=== PATIENT | male | born 1985 | race Caucasian/White ===

== ENCOUNTER 2023-02-27 09:10 | Observation (INO) | payer BC, OTHER ==
[2023-02-27] MEDS ORDERED: SODIUM CHLORIDE 0.9% 1,000 ML IV STA (11:21)
[2023-02-27] MEDS ORDERED: KETOROLAC 15 MG/ML 1 ML VIAL IVP STA (11:21)
[2023-02-27] MEDS ORDERED: METOCLOPRAMIDE 5 MG/ML 2 ML VIAL IVP STA (11:21)
--- NOTE | 2023-02-27 11:42 | ED ---
Abdominal Pain HPI - General Chief Complaint: Abdominal Pain Stated Complaint: abd pain Time Seen by Provider: 02/27/23 11:14 Source: patient Mode of arrival: ambulatory Limitations: no limitations - History of Present Illness Initial Comments: Patient is a 38-year-old male presenting with chief complaint of abdominal pain. Patient has had right-sided abdominal pain ongoing for the last 2 days. Admits to nausea and vomiting. Patient was initially seen at urgent care and prescribed Zofran and Bentyl. Yesterday he was seen at [facility], states that he had blood work performed and Covid test which was negative, no imaging performed. He states he was given Zofran and Toradol and discharged home. He states that today the pain is worsening. He admits to persistent nausea, has not vomited today. No fevers or chills. No chest pain or difficulty breathing. No diarrhea or constipation. No rectal bleeding. No dysuria or hematuria. No flank pain. - Related Data Home Medications Medication Instructions Recorded Confirmed Aspirin EC [Ecotrin Low Dose] 81 mg PO DAILY 02/27/23 02/27/23 Cholecalciferol [Vitamin D3 (25 25 mcg PO DAILY 02/27/23 02/27/23 Mcg = 1000 Iu)] Dicyclomine [Bentyl] 10 mg PO TID PRN 02/27/23 02/27/23 Evolocumab [Repatha Sureclick] 140 mg SQ Q14D 02/27/23 02/27/23 Garlic 1,000 mg PO DAILY 02/27/23 02/27/23 Magnesium 250 mg PO DAILY 02/27/23 02/27/23 Ondansetron Odt [Zofran Odt] 8 mg PO BID PRN 02/27/23 02/27/23 Zinc Gluconate [Zinc] 50 mg PO DAILY 02/27/23 02/27/23 Allergies Allergy/AdvReac Type Severity Reaction Status Date / Time No Known Allergies Allergy Verified 02/27/23 14:19 Review of Systems ROS Statement: Those systems with pertinent positive or pertinent negative responses have been documented in the HPI. ROS Other: All systems not noted in ROS Statement are negative. Past Medical History Past Medical History: Hyperlipidemia History of Any Multi-Drug Resistant Organisms: None Reported Past Surgical History: No Surgical Hx Reported Past Psychological History: No Psychological Hx Reported Smoking Status: Never smoker Past Alcohol Use History: None Reported Past Drug Use History: None Reported General Exam Limitations: no limitations General appearance: alert, in no apparent distress Head exam: Present: atraumatic, normocephalic, normal inspection Eye exam: Present: normal appearance, EOMI. Absent: scleral icterus, periorbital swelling Neck exam: Present: normal inspection, full ROM Respiratory exam: Present: normal lung sounds bilaterally. Absent: respiratory distress, wheezes, rales, rhonchi, stridor Cardiovascular Exam: Present: regular rate, normal rhythm, normal heart sounds. Absent: systolic murmur, diastolic murmur, rubs, gallop, clicks GI/Abdominal exam: Present: soft, tenderness. Absent: distended, guarding, rebound, rigid Neurological exam: Present: alert, oriented X3, CN II-XII intact Psychiatric exam: Present: normal affect, normal mood Skin exam: Present: warm, dry, intact, normal color. Absent: rash Course Vital Signs 02/27/23 02/27/23 09:27 11:57 Temperature 98.9 F Pulse Rate 72 52 L Respiratory 18 18 Rate Blood Pressure 148/90 143/87 O2 Sat by Pulse 97 98 Oximetry Medical Decision Making - Medical Decision Making Was pt. sent in by a medical professional or institution (, PA, [facility] [employer], urgent care, hospital, or halfway...) When possible be specific @ -No Did you speak to anyone other than the patient for history (EMS, parent, family, police, friend...)? What history was obtained from this source @ -No Did you review nursing and triage notes (agree or disagree)? Why? @ -I reviewed and agree with nursing and triage notes Were old charts reviewed (outside hosp., previous admission, EMS record, old EKG, old radiological studies, urgent care reports/EKG's, halfway records)? Report findings @ -No old charts were reviewed Differential Diagnosis (chest pain, altered mental status, abdominal pain women, abdominal pain men, vaginal bleeding, weakness, fever, dyspnea, syncope, headache, dizziness, GI bleed, back pain, seizure, CVA, palpatations, mental health, musculoskeletal)? @ -MDM Differential Abdominal Pain Men: Appendicitis, cholecystitis, diverticulosis, ischemic bowel, pancreatitis, hepatitis, UTI, gastroenteritis, AAA, incarcerated hernia, bowel obstruction, constipation, inflammatory bowel, hepatitis, peptic ulcer disease, splenic infarction, perforated viscus, testicular torsion... This is not meant to be an all-inclusive list EKG interpreted by me (3pts min.). @ -As above X-rays interpreted by me (1pt min.). @ -None done CT interpreted by me (1pt min.). @ -CT shows dilated retrocecal appendix with surrounding fluid compatible with acute appendicitis U/S interpreted by me (1pt. min.). @ -None done What testing was considered but not performed or refused? (CT, X-rays, U/S, labs)? Why? @ -None What meds were considered but not given or refused? Why? @ -None Did you discuss the management of the patient with other professionals (professionals i.e. , PA, [employer], lab, RT, psych nurse, administrator social welfare, education professional, teacher, toxics program officer, mental health case manager)? Give summary @ -Spoke with Dr. Davis who accepted admission and advised nothing by mouth, hydration, pain meds, antiemetics, and antibiotics. Was smoking cessation discussed for >3mins.? @ -No Was critical care preformed (if so, how long)? @ -No Were there social determinants of health that impacted care today? How? (Homelessness, low income, unemployed, alcoholism, drug addiction, transportation, low edu. Level, literacy, decrease access to med. care, long-term, rehab)? @ -No Was there de-escalation of care discussed even if they declined (Discuss DNR or withdrawal of care, Hospice)? DNR status @ -No What co-morbidities impacted this encounter? (DM, HTN, Smoking, COPD, CAD, Cancer, CVA, ARF, Chemo, Hep., AIDS, mental health diagnosis, sleep apnea, morbid obesity)? @ -None Was patient admitted / discharged? Hospital course, mention meds given and route, prescriptions, significant lab abnormalities, going to OR and other per tinent info. @ -Admitted. Patient is a 38-year-old male presenting with chief complaint of right lower quadrant pain as well as nausea and vomiting ongoing for the last 3 days. On physical examination there is right lower quadrant tenderness. WBC 17.5. CT shows evidence of appendicitis. I spoke with Dr. Davis general surgeon on-call who accepted admission. Blood cultures are drawn and patient was started on Zosyn. He is placed nothing by mouth and when necessary pain meds and antibiotics are ordered. I explained these findings to the patient, he conveyed verbal understanding and is in agreement with the plan. I discussed this case with my attending Dr. Gonzalez. Undiagnosed new problem with uncertain prognosis? @ -No Drug Therapy requiring intensive monitoring for toxicity (Heparin, Nitro, Insulin, Cardizem)? @ -No Were any procedures done? @ -No Diagnosis/symptom? @ -Appendicitis Acute, or Chronic, or Acute on Chronic? @ -Acute Uncomplicated (without systemic symptoms) or Complicated (systemic symptoms)? @ -complicated Side effects of treatment? @ -No Exacerbation, Progression, or Severe Exacerbation? @ -No Poses a threat to life or bodily function? How? (Chest pain, [place], [place], pneumonia, PE, COPD, DKA, ARF, appy, cholecystitis, CVA, Diverticulitis, Homicidal, Suicidal, threat to staff... and all critical care pts) @ -Yes, if not addressed may lead to sepsis, hypoperfusion, and , - Lab Data Result diagrams: 02/27/23 11:35 02/27/23 11:35 Lab Results 02/27/23 02/27/23 02/27/23 Range/Units 11:35 11:35 11:35 WBC 17.5 H (3.8-10.6) k/uL RBC 5.09 (4.30-5.90) m/uL Hgb 15.3 (13.0-17.5) gm/dL Hct 45.1 (39.0-53.0) % MCV 88.6 (80.0-100.0) fL MCH 29.9 (25.0-35.0) pg MCHC 33.8 (31.0-37.0) g/dL RDW 13.6 (11.5-15.5) % Plt Count 233 (150-450) k/uL MPV 8.1 Neutrophils % 86 % Lymphocytes % 7 % Monocytes % 6 % Eosinophils % 0 % Basophils % 0 % Neutrophils # 14.9 H (1.3-7.7) k/uL Lymphocytes # 1.2 (1.0-4.8) k/uL Monocytes # 1.1 H (0-1.0) k/uL Eosinophils # 0.0 (0-0.7) k/uL Basophils # 0.0 (0-0.2) k/uL Sodium 138 (137-145) mmol/L Potassium 3.8 (3.5-5.1) mmol/L Chloride 100 (98-107) mmol/L Carbon Dioxide 27 (22-30) mmol/L Anion Gap 11 mmol/L BUN 9 (9-20) mg/dL Creatinine 0.71 (0.66-1.25) mg/dL Est GFR (CKD-EPI)AfAm >90 (>60 ml/min/1.73 sqM) Est GFR (CKD-EPI)NonAf >90 (>60 ml/min/1.73 sqM) Glucose 116 H (74-99) mg/dL Calcium 9.4 (8.4-10.2) mg/dL Total Bilirubin 1.4 H (0.2-1.3) mg/dL AST 30 (17-59) U/L ALT 46 (4-49) U/L Alkaline Phosphatase 61 (38-126) U/L Total Protein 7.5 (6.3-8.2) g/dL Albumin 4.6 (3.5-5.0) g/dL Amylase 86 (30-110) U/L Lipase 127 (23-300) U/L Urine Color Yellow Urine Appearance Clear (Clear) Urine pH 7.0 (5.0-8.0) Ur Specific [place] >1.050 H (1.001-1.035) Urine Protein Trace H (Negative) Urine Glucose (UA) Negative (Negative) Urine Ketones Negative (Negative) Urine Blood Negative (Negative) Urine Nitrite Negative (Negative) Urine Bilirubin Negative (Negative) Urine Urobilinogen <2.0 (<2.0) mg/dL Ur Leukocyte Esterase Negative (Negative) Disposition Clinical Impression: Acute appendicitis Disposition: ADMITTED IP TO THIS [facility] Condition: Fair Time of Disposition: 13:41
[2023-02-27 12:16] LABS: ALT 46 U/L (4-49); AST 30 U/L (17-59); African American GFR (CKD) >90 (>60 ml/min/1.73 sqM); Albumin 4.6 g/dL (3.5-5.0); Alkaline Phosphatase 61 U/L (38-126); Amylase 86 U/L (30-110); Anion Gap 11 mmol/L; Blood Urea Nitrogen 9 mg/dL (9-20); Calcium 9.4 mg/dL (8.4-10.2); Carbon Dioxide 27 mmol/L (22-30); Chloride 100 mmol/L (98-107); Glucose 116 mg/dL (74-99); Lipase 127 U/L (23-300); Non-African American GFR(CKD) >90 (>60 ml/min/1.73 sqM); Potassium 3.8 mmol/L (3.5-5.1); Sodium 138 mmol/L (137-145); Total Bilirubin 1.4 mg/dL (0.2-1.3); Total Protein 7.5 g/dL (6.3-8.2)
[2023-02-27 12:54] LABS: Basophils % (A) 0 %; Eosinophils % (A) 0 %; HCT 45.1 % (39.0-53.0); HGB 15.3 gm/dL (13.0-17.5); Lymphocytes # (A) 1.2 k/uL (1.0-4.8); Lymphocytes % (A) 7 %; MCH 29.9 pg (25.0-35.0); MCHC 33.8 g/dL (31.0-37.0); MCV 88.6 fL (80.0-100.0); Mean Platelet Volume 8.1; Monocytes # (A) 1.1 k/uL (0-1.0); Monocytes % (A) 6 %; Neutrophils # (A) 14.9 k/uL (1.3-7.7); Neutrophils % (A) 86 %; Platelet Count 233 k/uL (150-450); RBC 5.09 m/uL (4.30-5.90); RDW 13.6 % (11.5-15.5); WBC 17.5 k/uL (3.8-10.6)
--- NOTE | 2023-02-27 13:16 | CT ---
EXAMINATION TYPE: CT abdomen pelvis w con DATE OF EXAM: 02/27/2023 COMPARISON: INDICATION: Right sided/umbilical pain starting yesterday. DLP: 1066.4 mGycm, Automated exposure control for dose reduction was used. CONTRAST: 100ml mL of Isovue 300. Study performed without Oral Contrast TECHNIQUE: Axial images were obtained from above the diaphragm to the pubic rami in the axial plane a t 5 mm thick sections. Reconstructed images are reviewed on the computer in the coronal plane. FINDINGS: Limited CT sections are obtained the lung bases. The lung bases are clear. CT ABDOMEN: Liver: Normal Spleen: Normal Pancreas: Normal Adrenal glands: The adrenal glands are normal. Gallbladder: Normal Kidneys: No masses are evident. No hydronephrosis is present. No cysts are present. Delayed images were obtained through the kidneys, which remain unremarkable. Aorta: Normal Inferior vena cava: Normal. CT PELVIS: Small amount of free fluid within the lower pelvis. Loops of bowel within the abdomen and pelvis are normal. This study is without oral contrast limi ting bowel evaluation. Appendix: The appendix is dilated measuring 1.6 cm. Free fluid surrounds the appendix. No definite ab scess is identified. Findings are compatible with acute appendicitis. Urinary bladder: Normal. Genitourinary structures: Prostate appears unremarkable. Some calcifications present. Osseous structures: No suspicious lytic or sclerotic lesions. IMPRESSIONS: 1. Dilated retrocecal appendix with surrounding fluid compatible with acute appendicitis
[2023-02-27] MEDS ORDERED: PIPERACILLIN-TAZOBACTAM 3.375 GM in SODIUM CHLORIDE 0.9% 100 ML IVPB STA (13:33)
[2023-02-27] MEDS ORDERED: NALOXONE 0.4 MG/ML 1 ML VIAL IV PRN (13:38)
[2023-02-27] MEDS ORDERED: MORPHINE SULFATE 4 MG/ML SYRINGE IV PRN (13:38)
[2023-02-27] MEDS ORDERED: ONDANSETRON 4 MG/2 ML VIAL IVP PRN (13:38)
[2023-02-27] MEDS ORDERED: SODIUM CHLORIDE 0.9% 1,000 ML IV ONE (13:40)
[2023-02-27] MEDS: SODIUM CHLORIDE 0.9% 1,000 ML IV SCH (14:01)
[2023-02-27 14:34] LABS: Appearance,Urine Clear (Clear); Bilirubin,Urine Negative (Negative); Blood,Urine Negative (Negative); Color,Urine Yellow; Glucose,Urine (UA) Negative (Negative); Ketones,Urine Negative (Negative); Leukocyte Esterase,Urine Negative (Negative); Nitrite,Urine Negative (Negative); Protein,Urine Trace (Negative); Urobilinogen,Urine <2.0 mg/dL (<2.0)
[2023-02-27 14:35] LABS: Specific Gravity,Urine >1.050 (1.001-1.035)
[2023-02-27] MEDS: ACETAMINOPHEN IV (For NPO) 1,000 MG in EMPTY BAG 1 BAG IVPB SCH (21:18)
[2023-02-27] MEDS: KETOROLAC 15 MG/ML 1 ML VIAL IVP PRN (22:21)
[2023-02-27] MEDS: PIPERACILLIN-TAZOBACTAM 3.375 GM in SODIUM CHLORIDE 0.9% 100 ML IVPB SCH (22:22)
[2023-02-28] MEDS: SODIUM CHLORIDE 0.9% 1,000 ML IV SCH ×2 (01:54→12:17)
[2023-02-28] MEDS: ACETAMINOPHEN IV (For NPO) 1,000 MG in EMPTY BAG 1 BAG IVPB SCH ×3 (02:56→15:19)
[2023-02-28] MEDS: PIPERACILLIN-TAZOBACTAM 3.375 GM in SODIUM CHLORIDE 0.9% 100 ML IVPB SCH ×3 (06:48→21:10)
[2023-02-28] MEDS ORDERED: IV FLUID CONTINUATION 1,000 ML IV ONE (09:20)
[2023-02-28 09:29] LABS: African American GFR (CKD) 126.9 (60.0-200.0); Anion Gap 10.9 mmol/L (10.00-18.00); BUN/Creat Ratio 12.44 Ratio (12.00-20.00); Blood Urea Nitrogen 11.2 mg/dL (9.0-27.0); Calcium 8.9 mg/dL (8.7-10.3); Carbon Dioxide 24.1 mmol/L (20.0-27.5); Non-African American GFR(CKD) 109.5 (60.0-200.0); Potassium 3.7 mmol/L (3.5-5.5)
[2023-02-28] MEDS ORDERED: HEPARIN SODIUM,PORCINE/PF 5,000 UNIT/0.5 ML SYRINGE SQ ONE (09:36)
[2023-02-28] MEDS ORDERED: ONDANSETRON 4 MG/2 ML VIAL IVP ONE (09:40)
[2023-02-28] MEDS ORDERED: DEXAMETHASONE SOD PHOSPHATE 4 MG/ML 1 ML VIAL IVP ONE (09:41)
[2023-02-28] MEDS ORDERED: LIDOCAINE 2% INJ 20 MG/ML (2 ML VIAL) ONE (09:42)
[2023-02-28] MEDS ORDERED: HYDROmorphone (PF) 1 MG/ML ONE (09:42)
[2023-02-28] MEDS ORDERED: PROPOFOL 10 MG/ML 20 ML VIAL IV ONE (09:42)
[2023-02-28] MEDS ORDERED: ROCURONIUM 10 MG/ML (5 ML VIAL) IV ONE (09:42)
[2023-02-28] MEDS ORDERED: KETOROLAC 15 MG/ML 1 ML VIAL ONE (09:42)
[2023-02-28] MEDS ORDERED: MIDAZOLAM 2 MG/2 ML VIAL ONE (09:42)
[2023-02-28] MEDS ORDERED: GLYCOPYRROLATE 0.2 MG/ML 2 ML VIAL ONE (09:42)
[2023-02-28] MEDS ORDERED: SUCCINYLCHOLINE CHLORIDE 200 MG/10 ML VIAL IV ONE (09:42)
[2023-02-28] MEDS ORDERED: HEPARIN SODIUM,PORCINE 5,000 UNIT/ML 1 ML VIAL SQ ONE (09:42)
[2023-02-28] MEDS ORDERED: fentaNYL (PF) 50 MCG/ML 2 ML AMP ONE (09:42)
[2023-02-28] MEDS ORDERED: NEOSTIGMINE 1 MG/ML 10 ML VIAL ONE (09:42)
--- NOTE | 2023-02-28 09:43 | P.GSHP ---
History of Present Illness H&P Date: 02/28/23 Chief Complaint: Right lower quadrant pain This a 38 she'll male presents today for right lower quadrant pain. Patient's had pain for present 3 days. He's had previous attacks of right lower quadrant pain which subsided spontaneously. Patient with computed tomography scan shows evidence of a dilated inflamed appendix Past Medical History Past Medical History: Hyperlipidemia History of Any Multi-Drug Resistant Organisms: None Reported Past Surgical History: No Surgical Hx Reported Additional Past Surgical History / Comment(s): colonoscopy Past Psychological History: No Psychological Hx Reported Smoking Status: Never smoker Past Alcohol Use History: None Reported Past Drug Use History: None Reported Medications and Allergies Home Medications Medication Instructions Recorded Confirmed Type Aspirin EC [Ecotrin Low Dose] 81 mg PO DAILY 02/27/23 02/27/23 History Cholecalciferol [Vitamin D3 (25 25 mcg PO DAILY 02/27/23 02/27/23 History Mcg = 1000 Iu)] Dicyclomine [Bentyl] 10 mg PO TID PRN 02/27/23 02/27/23 History Evolocumab [Repatha Sureclick] 140 mg SQ Q14D 02/27/23 02/27/23 History Garlic 1,000 mg PO DAILY 02/27/23 02/27/23 History Magnesium 250 mg PO DAILY 02/27/23 02/27/23 History Ondansetron Odt [Zofran Odt] 8 mg PO BID PRN 02/27/23 02/27/23 History Zinc Gluconate [Zinc] 50 mg PO DAILY 02/27/23 02/27/23 History Allergies Allergy/AdvReac Type Severity Reaction Status Date / Time No Known Allergies Allergy Verified 02/28/23 09:21 Surgical - Exam Vital Signs Temp Pulse Resp BP Pulse Ox 98.9 F 72 18 148/90 97 02/27/23 09:27 02/27/23 09:27 02/27/23 09:27 02/27/23 09:27 02/27/23 09:27 - General well developed, well nourished, no distress - Eyes PERRL - ENT normal pinna - Neck no masses - Respiratory normal expansion - Cardiovascular Rhythm: regular - Abdomen Marked right lower quadrant tenderness Abdomen: soft Results - Labs 02/27/23 11:35 02/28/23 05:26 Abnormal Lab Results - Last 24 Hours (Table) 02/27/23 02/27/23 02/27/23 Range/Units 11:35 11:35 11:35 WBC 17.5 H (3.8-10.6) k/uL Neutrophils # 14.9 H (1.3-7.7) k/uL Monocytes # 1.1 H (0-1.0) k/uL Glucose 116 H (74-99) mg/dL Total Bilirubin 1.4 H (0.2-1.3) mg/dL Ur Specific [place] >1.050 H (1.001-1.035) Urine Protein Trace H (Negative) Diabetes panel 02/27/23 02/28/23 Range/Units 11:35 05:26 Sodium 138 141 (137-145) mmol/L Potassium 3.8 3.7 (3.5-5.1) mmol/L Chloride 100 106 (98-107) mmol/L Carbon Dioxide 27 24.1 (22-30) mmol/L BUN 9 11.2 (9-20) mg/dL Creatinine 0.71 0.9 (0.66-1.25) mg/dL Glucose 116 H 90 (74-99) mg/dL Calcium 9.4 8.9 (8.4-10.2) mg/dL AST 30 (17-59) U/L ALT 46 (4-49) U/L Alkaline Phosphatase 61 (38-126) U/L Total Protein 7.5 (6.3-8.2) g/dL Albumin 4.6 (3.5-5.0) g/dL Calcium panel 02/27/23 02/28/23 Range/Units 11:35 05:26 Calcium 9.4 8.9 (8.4-10.2) mg/dL Albumin 4.6 (3.5-5.0) g/dL Pituitary panel 02/27/23 02/28/23 Range/Units 11:35 05:26 Sodium 138 141 (137-145) mmol/L Potassium 3.8 3.7 (3.5-5.1) mmol/L Chloride 100 106 (98-107) mmol/L Carbon Dioxide 27 24.1 (22-30) mmol/L BUN 9 11.2 (9-20) mg/dL Creatinine 0.71 0.9 (0.66-1.25) mg/dL Glucose 116 H 90 (74-99) mg/dL Calcium 9.4 8.9 (8.4-10.2) mg/dL Adrenal panel 02/27/23 02/28/23 Range/Units 11:35 05:26 Sodium 138 141 (137-145) mmol/L Potassium 3.8 3.7 (3.5-5.1) mmol/L Chloride 100 106 (98-107) mmol/L Carbon Dioxide 27 24.1 (22-30) mmol/L BUN 9 11.2 (9-20) mg/dL Creatinine 0.71 0.9 (0.66-1.25) mg/dL Glucose 116 H 90 (74-99) mg/dL Calcium 9.4 8.9 (8.4-10.2) mg/dL Total Bilirubin 1.4 H (0.2-1.3) mg/dL AST 30 (17-59) U/L ALT 46 (4-49) U/L Alkaline Phosphatase 61 (38-126) U/L Total Protein 7.5 (6.3-8.2) g/dL Albumin 4.6 (3.5-5.0) g/dL Assessment and Plan Assessment: Acute appendicitis per patient will undergo laparoscopic appendectomy. Patient is aware the risk of possible open appendectomy due to chronic appendicitis
[2023-02-28] MEDS ORDERED: BUPIVACAINE (PF) 0.25% 30 ML VIAL SQ ONE (10:04)
[2023-02-28] MEDS ORDERED: HYDROmorphone 1 MG/ML 1 ML SYRINGE IVP PRN (10:38)
[2023-02-28] MEDS ORDERED: ONDANSETRON 4 MG/2 ML VIAL IVP PRN (10:38)
[2023-02-28] MEDS ORDERED: HYDROcodone/APAP 5-325MG 1 EACH TAB PO PRN (10:38)
[2023-02-28] MEDS ORDERED: LACTATED RINGERS 1,000 ML IV ONE ×2 (10:38→10:39)
[2023-02-28] MEDS ORDERED: NALOXONE 0.4 MG/ML 1 ML VIAL IV PRN (10:38)
[2023-02-28] MEDS ORDERED: ACETAMINOPHEN TAB 325 MG TAB PO PRN (10:38)
--- NOTE | 2023-02-28 10:38 | P.OP ---
Date of Procedure: 02/28/23 Preoperative Diagnosis: Acute appendicitis Postoperative Diagnosis: Acute appendicitis Procedure(s) Performed: Laparoscopic appendectomy Anesthesia: TERE Surgeon: Karl Davis Estimated Blood Loss (ml): 10 Pathology: other (Appendix) Condition: stable Disposition: PACU Operative Findings: Grossly inflamed appendix Description of Procedure: The patient's placed on the operating table in the supine position. The patient received general anesthesia. The abdomen was prepped and draped in the usual sterile fashion. The skin was anesthetized 1% local Xylocaine at the trocar sites. Using an 11 blade the skin was incised at the umbilicus. The umbilicus was grasped with a [place] clamp and then a Veress needle was placed into the peritoneal cavity. Position of the Veress needle was confirmed with positive drop test. After adequate insufflation a 5 mm trocar was placed into the peritoneal cavity. The abdomen was further insufflated. And then the laparoscope was placed in the peritoneal cavity. Next a 5 mm trocar was placed in the midline suprapubic position. And then a 10 mm trocar was placed in the midline epigastric position. The patient was rotated with the right side up and in Trendelenburg. The appendix was visualized. The appendix appeared to be inflamed. The appendix was grasped and then using the Harmonic scissors the mesoappendix was divided. A PDS Endoloop was then placed around the base of the appendix. And then the appendix was divided using Harmonic scissors. The appendix was placed into an Endo Catch and brought out through the 10 mm trocar site. The abdomen was irrigated. There is no bleeding seen. The trochars withdrawn. The skin was closed interrupted 3-0 Monocryl suture. Dermabond dressing was applied. Patient was sent to recovery room in stable condition.
[2023-02-28 10:40] LABS: Basophils # (A) 0.04 X 10*3/uL (0.00-0.10); Basophils % (A) 0.5 %; Eosinophils # (A) 0.04 X 10*3/uL (0.04-0.35); Eosinophils % (A) 0.5 %; HGB 13.3 g/dL (13.0-17.0); Immature Grans, Automated 0.5 %; Lymphocytes # (A) 1.17 X 10*3/uL (0.90-5.00); Lymphocytes % (A) 13.5 %; MCH 29.8 pg (27.0-32.0); MCHC 32.4 g/dL (32.0-37.0); MCV 91.7 fL (80.0-97.0); Mean Platelet Volume 10.5 fL (9.5-12.2); Monocytes # (A) 0.91 X 10*3/uL (0.20-1.00); Monocytes % (A) 10.5 %; NRBC Per 100 WBC 0 /100 WBCS (0.0-0.0); Neutrophils # (A) 6.47 X 10*3/uL (1.80-7.70); Neutrophils % (A) 74.5 %; Platelet Count 169 X 10*3/uL (140-440); RBC 4.47 X 10*6/uL (4.40-5.60); RDW 13.4 % (11.5-14.5); WBC 8.67 X 10*3/uL (4.50-10.00)
[2023-02-28] MEDS: KETOROLAC 15 MG/ML 1 ML VIAL IVP PRN ×2 (16:48→22:34)
--- NOTE | 2023-02-28 19:28 | P.CONS ---
History of Present Illness - Reason for Consult Consult date: 02/28/23 Medical management Requesting physician: Karl Davis - Chief Complaint Abdominal pain - History of Present Illness This is a pleasant 38-year-old patient who follows Dr. Scott Lux. Has a history of familial hyperlipidemia for which he takes repatha. 2 days patient started having abdominal pain accompanied by nausea vomiting. Had initially gone to [facility]. Was given symptomatically treatment. The pain became worse he decided to come here. No change in bowel pattern. Had a fever 102 in the ER. Computed tomography scan in the ER showed dilated retrocecal appendix with surrounding fluid compatible with acute appendicitis. This morning patient underwent laparoscopic cholecystectomy with Dr. Davis. Postprocedure some dull pain. No flatus. Did eat a very light meal. Some nausea. Has been out of bed. Review of systems: GEN.: Tired EYES: None HEENT: None NECK: None RESPIRATORY: None CARDIOVASCULAR: None GASTROINTESTINAL: As above GENITOURINARY: None MUSCULOSKELETAL: None LYMPHATICS: None HEMATOLOGICAL: None PSYCHIATRY: None NEUROLOGICAL: None Past medical history to include: Familial hyperlipidemia Social history: Lives with his brother. No smoking or alcohol. Does advertising for [employer] Physical examination: VITAL SIGNS: 102, 70, 18, 121/72, 97% room air upon presentation GENERAL: BMI 25.6 reclining but awake not in distress. EYES: Pupils equal. Conjunctiva normal. HEENT: External appearance of nose and ears normal, oral cavity grossly normal. NECK: JVD not raised; masses not palpable. HEART: First and second heart sounds are normal; no edema. LUNGS: Respiratory rate normal; clear to auscultation. ABDOMEN: Soft, right-sided tenderness, no guarding rigidity, liver spleen not palpable, no masses palpable. PSYCH: Alert and oriented x3; mood and affect normal. MUSCULOSKELETAL:No Clubbing/cyanosis;muscles-grossly intact NEUROLOGICAL: Cranial nerves grossly intact; no facial asymmetry, power and sensation grossly intact. LYMPHATICS: No lymph nodes palpable in the axilla and neck INVESTIGATIONS, reviewed in the clinical context: White count 7.5 hemoglobin 15.3 platelets 233 sodium 138 potassium 3.8 creatinine 0.71 total bilirubin 1.4 Computed tomography scan abdomen: Dilated retrocecal appendix with surrounding fluid compatible with acute appendicitis Assessment and plan: -Acute retrocecal appendicitis followed by laparoscopic appendectomy with Dr. Davis today IV fluids. Pain control. -Familial hyperlipidemia on repatha -Sepsis from appendicitis on presentation IV Zosyn. IV fluids -Hyperbilirubinemia, likely from sepsis/dehydration Diet as tolerated. IV fluids. Pain control. Activity as tolerated. Care was discussed with the patient. Question answered. Thank you Dr. Davis Past Medical History Past Medical History: Hyperlipidemia History of Any Multi-Drug Resistant Organisms: None Reported Past Surgical History: No Surgical Hx Reported Additional Past Surgical History / Comment(s): colonoscopy Past Psychological History: No Psychological Hx Reported Smoking Status: Never smoker Past Alcohol Use History: None Reported Past Drug Use History: None Reported Medications and Allergies Home Medications Medication Instructions Recorded Confirmed Type Aspirin EC [Ecotrin Low Dose] 81 mg PO DAILY 02/27/23 02/27/23 History Cholecalciferol [Vitamin D3 (25 25 mcg PO DAILY 02/27/23 02/27/23 History Mcg = 1000 Iu)] Dicyclomine [Bentyl] 10 mg PO TID PRN 02/27/23 02/27/23 History Evolocumab [Repatha Sureclick] 140 mg SQ Q14D 02/27/23 02/27/23 History Garlic 1,000 mg PO DAILY 02/27/23 02/27/23 History Magnesium 250 mg PO DAILY 02/27/23 02/27/23 History Ondansetron Odt [Zofran Odt] 8 mg PO BID PRN 02/27/23 02/27/23 History Zinc Gluconate [Zinc] 50 mg PO DAILY 02/27/23 02/27/23 History Allergies Allergy/AdvReac Type Severity Reaction Status Date / Time No Known Allergies Allergy Verified 02/28/23 09:21 Physical Exam Vitals: Vital Signs Temp Pulse Pulse Pulse Resp BP BP 02/28/23 15:40 76 120/78 02/28/23 14:30 62 123/72 02/28/23 14:00 77 129/73 02/28/23 13:30 65 116/72 02/28/23 13:00 71 123/76 02/28/23 12:45 59 L 110/63 02/28/23 12:30 58 L 108/63 02/28/23 12:20 70 116/63 02/28/23 11:47 66 16 108/60 02/28/23 11:32 62 16 109/61 02/28/23 11:16 71 16 114/61 02/28/23 11:00 62 16 112/52 02/28/23 10:50 97 F L 67 16 108/58 02/28/23 09:23 99.1 F 74 16 112/59 02/28/23 07:00 98.6 F 61 16 102/57 02/28/23 03:00 98.9 F 67 16 110/63 02/27/23 22:30 99.4 F 85 16 110/64 02/27/23 20:16 102.0 F H 70 18 121/72 Pulse Ox 02/28/23 15:40 95 02/28/23 14:30 97 02/28/23 14:00 98 02/28/23 13:30 96 02/28/23 13:00 96 02/28/23 12:45 94 L 02/28/23 12:30 94 L 02/28/23 12:20 95 02/28/23 11:47 94 L 02/28/23 11:32 94 L 02/28/23 11:16 100 02/28/23 11:00 100 02/28/23 10:50 100 02/28/23 09:23 96 02/28/23 07:00 98 02/28/23 03:00 100 02/27/23 22:30 94 L 02/27/23 20:16 97 Intake and Output 02/28/23 02/28/23 02/28/23 06:59 14:59 22:59 Intake Total 1242 Output Total 20 Balance 1222 Intake: IV 800 Oral 442 Output: Estimated Blood Loss 20 Other: # Voids 1 Weight 92.986 kg Results CBC & Chem 7: 02/28/23 05:26 02/28/23 05:26
[2023-03-01] MEDS: SODIUM CHLORIDE 0.9% 1,000 ML IV SCH (00:37)
[2023-03-01] MEDS: PIPERACILLIN-TAZOBACTAM 3.375 GM in SODIUM CHLORIDE 0.9% 100 ML IVPB SCH (06:10)
[2023-03-01] MEDS: KETOROLAC 15 MG/ML 1 ML VIAL IVP PRN (06:10)
[2023-03-01] MEDS ORDERED: ENOXAPARIN 40 MG/0.4 ML SYRINGE SQ SCH (09:00)
[2023-03-01 09:37] VITALS: RESP 16
[2023-03-01 14:30] VITALS: BP 125/81; PULSE 74; TEMP 98.4
--- NOTE | 2023-03-01 14:35 | P.DS ---
Providers Date of admission: 02/27/23 13:30 Expected date of discharge: 03/01/23 Attending physician: Karl Davis Consults: 02/28/23 11:08 Consult Physician Routine Consulting Provider: Antonio Funes Consult Reason/Comments: medical management Do you want consulting provider notified?: Yes Primary care physician: Scott Ferris Hospital Course: Discharge diagnosis 1. Acute appendicitis status post laparoscopic appendectomy Hospital course This is a 38-year-old male who presented with right lower quadrant abdominal pain. Computed tomography scan H notes of a dilated inflamed appendix. Patient diagnosed with acute appendicitis. Patient status post laparoscopic appendectomy. Patient is tolerating diet. His pain is controlled. He is having flatus. He has been up and ambulating. Denies any difficulty urinating. He is afebrile. White count has normalized. He is stable for discharge. Please refer to chart for any further details. Physician Marketing Support Manager note has been reviewed by physician. Signing provider agrees with the documented findings, assessment, and plan of care. Patient Condition at Discharge: Stable Plan - Discharge Summary Discharge Rx Participant: No New Discharge Prescriptions: New metroNIDAZOLE [Flagyl] 500 mg PO TID #30 tab Ibuprofen [Motrin] 600 mg PO Q8HR PRN #30 tab PRN Reason: Pain oxyCODONE HCL [OxyIR] 5 mg PO Q6H PRN 2 Days #5 tab PRN Reason: Pain Acetaminophen Tab [Tylenol Tab] 650 mg PO Q4H PRN #30 tablet PRN Reason: Pain Levofloxacin [Levaquin] 500 mg PO DAILY 10 Days #10 tab Continue Zinc Gluconate [Zinc] 50 mg PO DAILY Cholecalciferol [Vitamin D3 (25 Mcg = 1000 Iu)] 25 mcg PO DAILY Magnesium 250 mg PO DAILY Aspirin EC [Ecotrin Low Dose] 81 mg PO DAILY Evolocumab [Repatha Sureclick] 140 mg SQ Q14D Garlic 1,000 mg PO DAILY Discontinued Ondansetron Odt [Zofran Odt] 8 mg PO BID PRN PRN Reason: Nausea Dicyclomine [Bentyl] 10 mg PO TID PRN PRN Reason: Gi Upset Discharge Medication List Aspirin EC [Ecotrin Low Dose] 81 mg PO DAILY 02/27/23 [History] Cholecalciferol [Vitamin D3 (25 Mcg = 1000 Iu)] 25 mcg PO DAILY 02/27/23 [History] Evolocumab [Repatha Sureclick] 140 mg SQ Q14D 02/27/23 [History] Garlic 1,000 mg PO DAILY 02/27/23 [History] Magnesium 250 mg PO DAILY 02/27/23 [History] Zinc Gluconate [Zinc] 50 mg PO DAILY 02/27/23 [History] Acetaminophen Tab [Tylenol Tab] 650 mg PO Q4H PRN #30 tablet 03/01/23 [Rx] Ibuprofen [Motrin] 600 mg PO Q8HR PRN #30 tab 03/01/23 [Rx] Levofloxacin [Levaquin] 500 mg PO DAILY 10 Days #10 tab 03/01/23 [Rx] metroNIDAZOLE [Flagyl] 500 mg PO TID #30 tab 03/01/23 [Rx] oxyCODONE HCL [OxyIR] 5 mg PO Q6H PRN 2 Days #5 tab 03/01/23 [Rx] Follow up Appointment(s)/Referral(s): Scott Ferris DO [Primary Care Provider] - 1-2 days Karl Davis MD [STAFF PHYSICIAN] - 03/10/23 2:15 pm (Follow up in the office with Dr. Davis for incision check as scheduled for you ) Patient Instructions/Handouts: Laparoscopic Appendectomy (GEN) Activity/Diet/Wound Care/Special Instructions: No driving while taking OxyIR No lifting over 10 pounds Shower daily. No soaking or tub baths for 2 weeks Very light activity until you are reevaluated at your follow up appointment with your surgeon Discharge Disposition: HOME SELF-CARE
--- NOTE | 2023-03-01 18:40 | P.PN ---
Progress Note - Text Progress Note Date: 03/01/23 - Chief Complaint Abdominal pain Hospital course: This is a pleasant 38-year-old patient who follows Dr. Scott Lux. Has a history of familial hyperlipidemia for which he takes repatha. 2 days patient started having abdominal pain accompanied by nausea vomiting. Had initially gone to [facility]. Was given symptomatically treatment. The pain became worse he decided to come here. No change in bowel pattern. Had a fever 102 in the ER. Computed tomography scan in the ER showed dilated retrocecal appendix with surrounding fluid compatible with acute appendicitis. This morning patient underwent laparoscopic cholecystectomy with Dr. Davis. Postprocedure some dull pain. No flatus. Did eat a very light meal. Some nausea. Has been out of bed. March 01: Patient is not hungry for breakfast. Did eat about half his lunch. No nausea vomiting. Slight abdominal pain. Flatus. Has been out of bed Current medications reviewed Past medical history to include: Familial hyperlipidemia Social history: Lives with his brother. No smoking or alcohol. Does advertising for [employer] Physical examination: VITAL SIGNS: Afebrile, 68, 16, 109/64, 94% room air GENERAL: BMI 25.6 comfortable EYES: Pupils equal. Conjunctiva normal. HEENT: External appearance of nose and ears normal, oral cavity grossly normal. NECK: JVD not raised; masses not palpable. HEART: First and second heart sounds are normal; no edema. LUNGS: Respiratory rate normal; clear to auscultation. ABDOMEN: Soft, mild tenderness, no guarding rigidity, liver spleen not palpable, no masses palpable. PSYCH: Alert and oriented x3; mood and affect normal. INVESTIGATIONS, reviewed in the clinical context: White count 7.5 hemoglobin 15.3 platelets 233 sodium 138 potassium 3.8 creatinine 0.71 total bilirubin 1.4 Computed tomography scan abdomen: Dilated retrocecal appendix with surrounding fluid compatible with acute appendicitis Assessment and plan: -Acute retrocecal appendicitis followed by laparoscopic appendectomy with Dr. Davis today IV fluids. Pain control. -Familial hyperlipidemia on repatha -Sepsis from appendicitis on presentation IV Zosyn. IV fluids -Hyperbilirubinemia, likely from sepsis/dehydration Being discharged by surgery on Flagyl and Levaquin. Discussed with patient. Thank you Dr. Davis
== END 2023-03-01 15:14 | disposition home or self-care (01) ==
LOC: EC 09:10 → 6NMEDSUR 13:30
PROVIDERS: ADMIT Surgery; ATTEND Surgery
DX: R10.9 Unspecified abdominal pain (principal); Z79.82 Long term (current) use of aspirin; Z79.899 Other long term (current) drug therapy; E78.5 Hyperlipidemia, unspecified; Z98.890 Other specified postprocedural states
CPT/HCPCS: 96376; 96361; 96365; 96366; 96375; 99285; 36415; 88304; 80053; 80048; 82150; 83690; 85025 ×2; 81003; 87040; 74177; 44970; G0378 ×3; J2543 ×3; J2250; J0330; J2270; J1644; J1100; J2710; J2765; J2405; J1650; J3010; J1170; J0131 ×2; J1885 ×3; J2704; Q9967; J2001